=== PATIENT | female | born 1970 | race African-American/Black ===

== ENCOUNTER 2019-11-17 02:44 | Emergency (ER) | payer MEDICAID, OTHER ==
[~2019-11-17] VITALS: Ht 177.8 cm; Wt 62.0 kg
[2019-11-17 03:05] VITALS: BP 101/67
== END 2019-11-17 03:05 | disposition home or self-care (01) ==
LOC: ER 02:44
DX: J45.909 Unspecified asthma, uncomplicated (principal)
CPT/HCPCS: 99283